=== PATIENT | female | born 1990 | race Caucasian/White ===

== ENCOUNTER 2017-06-24 08:44 | Inpatient (IN) ==
--- OUTSIDE RECORDS SUMMARY | 2017-06-24 08:48 | External Medical Summary | Continuity of Care Document ---
:1990 Author Organization [facility] Address [address] [place], [place] [id number] Phone Care Team Providers Name Role Phone Mela Rosenberg MD Unavailable Unavailable Allergies, Adverse Reactions, Alerts Substance Reaction Severity Status No Known Drug Allergies Unknown Active Medications Medication Instructions Dosage Effective Dates Status Comments (start - stop) labetalol 100 mg take 1 tablet by - Active tablet oral route 1-2 times every day Fioricet 50 mg-300 take 1 - 2 capsule Not Available - Active mg-40 mg capsule by oral route every 6 hours as needed not to exceed 6 capsules per 24hrs FOLIC ACID 65 mg daily - Active (unknown strength) iron ER 325 mg (65 - Active mg iron) capsule,extended release 28 mg-800 - Active mcg tablet Problems Condition Effective Dates (start - stop) Clinical Status Encntr for suprvsn of normal first - preg, third trimester 29 weeks gestation of - Pap Smear Screening, Cervix Encounter for oth general cnsl and advice on procreation 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) (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) w/o abn findings Encntr screen for infections w sexl - mode of transmiss Encounter for screening for oth - infec/parastc diseases Encntr for suprvsn of normal first - preg, first trimester Encounter for screening of - mother 9 weeks gestation of - Oth related conditions, - second trimester 22 weeks gestation of - Matern care for oth or susp poor fetl - grth, 1st tri, unsp 13 weeks gestation of - Matern care for oth or susp poor fetl - grth, 2nd tri, unsp 18 weeks gestation of - Matern care for oth or susp poor fetl - grth, third tri, unsp Low lying placenta NOS or w/out - hemorrhage, third trimester 32 weeks gestation of - Low lying placenta NOS or w/out - hemorrhage, second trimester 18 weeks gestation of - Encntr for suprvsn of normal first - preg, second trimester 26 weeks gestation of - Low lying placenta NOS or w/out - hemorrhage, third trimester 30 weeks gestation of - Encntr for suprvsn of normal first - preg, third trimester 32 weeks gestation of - 28 weeks gestation of - Encntr for suprvsn of normal first - preg, third trimester OCP Surveillance - Active Migraines Active Procedures Procedure Date OB Visit No Charge - [employer] Results Test Name Date and Time Measure Units Reference Range Abnormal Flag Comments Unknown Advance Directives Directive Yes / No Effective Date File Name Unknown Encounters Encounter Practice Location Reason(s) Diagnoses Date Provider Care Team Description For Visit Members Associates Vlad Encsamantha for Carcamo Referring In Womens suprvsn of normal 6-201 Marzena. Provider: Health [facility], first preg, third 7 700 Marzena Carcamo PO [address] [email or web address] weeks Medical K, 700 1522, gestation of [facility], , [facility] [place], 120, [place] 120, [id number], Vlad [place], [place], tel:[phone] [id number] , [place]. tel: tel: [phone] Stefanie Chu Matern care for Sep-0 Carcamo Referring In Womens Ultrasound oth or susp poor 6-201 Marzena. Provider: Fany MURPHY, fetl grth, third 7 700 Marzena Carcamo PO Box tri, unspLow Medical , 700 1522, lying placenta [facility], NOS or w/out , [facility] Dr MOHAMUD, hemorrhage, third 120, [place] 120, [id number], [id number] weeks Vlad Chu, gestation of [place], tel: [phone]. , [place]. tel: tel: [phone] Stefanie Chu Low lying Aug-2 Carcamo Referring In Womens placenta NOS or 4-201 Marzena. Provider: Fany MURPHY, w/out hemorrhage, 7 700 Marzena Carcamo PO Box third [email or web address] [facility], 700 1522, weeks gestation Center [facility], of , [facility] Dr MOHAMUD, 120, [place] 120, , Vlad Chu, [place], tel: [phone]. , [place]. tel: tel: [phone] Stefanie Chu Encntr for Aug-2 Carcamo Referring In Womens suprvsn of normal 1-201 Marzena. Provider: Fany MURPHY, first preg, third 7 700 Marzena Carcamo PO Box [id number] weeks [facility], 700 1522, gestation of [facility], , [facility] Dr MOHAMUD, 120, [place] 120, , Vlad Chu, [place], tel: [phone]. , [place]. tel: tel: [phone] Stefanie Chu 28 weeks Aug-1 Carcamo Referring In Womens gestation of 0-201 Marzena. Provider: Fany MURPHY pregnancyEncntr 7 700 Marzena Carcamo PO Box for suprvsn of Medical , 700 1522, normal first [facility], preg, third , [facility] Dr MOHAMUD, trimester 120, [place] 120, , Vlad Chu, [place], [place], tel:[phone]. , [place]. tel: tel: [phone] Stefanie Chu Encntr for Saroj-2 Carcamo Referring In Womens suprvsn of normal 7-201 Marzena. Provider: Fany MURPHY, first preg, 7 700 Marzena Carcamo PO Box second Medical , 700 1522, [email or web address] [facility], [facility] , [facility] Dr MOHAMUD, 120, [place] 120, , Vlad [place], [place], [place], tel:[phone]. , [place]. tel: tel: [phone] Stefanie Chu Oth Zaki-2 Carcamo Referring In Womens related 9-201 Marzena. Provider: Fany MURPHY, conditions, 7 700 Marzena Carcamo PO Box [facility] , 700 1522, [id number] weeks [facility], [facility] of , [facility] Dr MOHAMUD, 120, [place] 120, , Vlad [place], [place], [place], tel:[phone]. , [place]. tel: tel: [phone] Stefanie Chu Zaki-2 Carcamo In Womens 3-201 Marzena. Fany MURPHY, 7 700 PO [address] Medical [address], [place], [place], 120, , [place], [place], tel: [phone] , [place]. tel: [phone] Stefanie Chu Low lying Zaki-0 Carcamo Referring In Womens placenta NOS or 1-201 Marzena. Provider: Fany MURPHY, w/out hemorrhage, 7 700 Marzena Carcamo PO Box [facility] , 700 1522, [facility], [facility] of , [facility] Dr MOHAMUD, 120, [place] 120, , Vlad [place], [place], [place], tel:[phone]. , [place]. tel: tel: [phone] Stefanie Chu Matern care for Zaki-0 Carcamo Referring In Womens Ultrasound oth or susp poor - Marzena. Provider: Fany MURPHY, [facility], 2nd 7 700 Marzena Carcamo PO Box tri, [email or web address] weeks Medical , 700 1522, gestation of [facility], , [facility] Dr MOHAMUD, 120, [place] 120, [id number], Vlad [place], [place], [place], tel: [phone]. , [place]. tel: tel: [phone] Stefanie Chu Matern care for Apr-2 Carcamo Referring In Womens oth or susp poor 5- Marzena. Provider: Fany MURPHY [facility], 1st 7 700 Marzena Carcamo PO Box tri, [email or web address] weeks Medical , 700 1522, gestation of [facility], , [facility] Dr MOHAMUD, 120, [place] 120, [id number], Vlad [place], [place], tel:[phone]. , [place]. tel: tel: [phone] Stefanie Chu Encntlarissa screen for Mar-2 Carcamo Referring In Womens infections w sexl Marzena. Provider: Fany MURPHY, mode of 7 700 Marzena Carcamo PO Box transmissEncounte Medical , 700 1522, r for screening [facility], for oth , [facility] Dr MOHAMUD, infec/parastc 120, [place] 120, , diseasesEncntr Vlad Chu, for suprvsn of [place]OH[place]UD, tel: normal first [phone]. preg, first , [place]. tel: trimesterEncounte tel: [phone] r for [phone] screening of mother9 weeks gestation of Stefanie Chu Pap Smear Carcamo Referring In Womens Screening, Marzena. Provider: Fany MURPHY, CervixEncounter 6 700 Marzena Carcamo PO Box for ot general Medical , 700 1522, cnsl and advice [facility], on , [facility] Dr MOHAMUD, procreationEncntr 120, [place] 120, [id number], for pool finisher exam Vlad [place], (general) [place], [place], tel: (routine) w/o abn [phone]. [facility] , . tel: tel: [phone] Associates Vlad December- Carcamo In Womens 1-201 Marzena. [facility], 5 700 PO [facility] [address], [place] [address] Adri[place], [place], 120, [id number], [facility], tel: [phone] , . tel: [phone] Family History Family Member Diagnosis Age At Onset No family history of Ovarian Cancer Maternal Grandmother oral cancer Father Cardiovascular Disease No family history of Venous Thrombosis No family history of Epilepsy No family history of Osteoporosis No family history of Kidney Disease No family history of Stroke No family history of Colon Cancer Father Hypertension Mother Hypertension Mother Diabetes mellitus No family history of Breast Cancer No family history of Pulmonary Embolism No family history of Lung Disease No family history of Thyroid Disorder No family history of Uterine Cancer Immunizations Vaccine Date Status Comments Tdap completed Source: New Immunization Record Influenza, seasonal, injectable, completed Note: Invalid documented admin preservative free, 3 yrs or date was NULL/NULL/2014. ; older Source: Source Unspecified Tdap completed Note: Invalid documented admin date was NULL/NULL/2013. ; Source: Source Unspecified MMR completed Note: Invalid documented admin date was NULL/NULL/1997. ; Source: Source Unspecified Payers Payer name Insurance type Covered constitution party ID Authorization(s) [facility] [id number] [facility] [id number] Social History Type Description Quantity Date Captured Alcohol Use Details No Caffeine Use Details Unknown Tobacco Use Status Unknown Smoking Status Never smoker Vital Signs Date / Height Weight BMI Pulse Blood Temperature Respiratory Body Head BMI Time: Rate Pressure Rate Surface Circumference percentile Area 152.90 24.6 126/84 -2017 lbs 8 mm[Hg] 11:35 kg/m AM eter (2) Chief Complaint And Reason For Visit Unknown Chief Complaint And Reason For Visit Reason For Referral Reason For Referral Unknown Plan Of Care Date Type Action Status Appointment Edie Guzman BOOKED Future Order: Lab Order Pap Smear With HPV Reflex If ASCUS Ordered ([id number]) Future Order: Radiology Order Complete OB Ultrasound > 14 Ordered Weeks ([id number]) Future Order: Radiology Order Ultrasound OB Follow-up ([id number]) Ordered Date Type Problem Goal Intervention Status Start Date Unknown. History Of Present Illness Encounter Date Complaint History Of Present Illness This patient has no known history of present illness Functional Status Encounter Date Functional Assessment Cognitive Assessment Unknown Medications Administered Medication Instructions Dosage Effective Dates (start - stop) Status Comments Drug Treatment Unknown Instructions Date Instruction Additional Information gestational glucose lab screening genetic testing HIV and other routine tests risk factors identified by history anticipated course of care nutrition and weight gain counseling, special diet toxoplasmosis precautions (cats / raw meat) exercise indications for ultrasound influenza vaccine environmental / work hazards travel tobacco (ask, advise, assess, assist and arrange) alcohol illicit / recreational drugs use of any medications (including supplements, vitamins, herbs, OTC drugs) smoking counseling domestic violence seat belt use new ob handbook Zika virus assessment & precautions dentist, wt gain 25-35#
--- OUTSIDE RECORDS SUMMARY | 2017-06-24 08:48 | External Medical Summary | Continuity of Care Document ---
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) w/o abn findings Pap Smear Screening, Cervix Encounter for oth general cnsl and advice on procreation Encntr screen for infections w sexl - [...] second trimester 18 weeks gestation of - Low lying placenta NOS or w/out - hemorrhage, third trimester 30 weeks gestation of - Encntr for suprvsn of normal first - preg, second trimester 26 weeks gestation of - Encntr for suprvsn of normal first - preg, third trimester 32 weeks gestation of - Encntr for suprvsn of normal first - preg, third trimester 29 weeks gestation of - Encntr for suprvsn of normal first - preg, third trimester 36 weeks gestation of - Encounter For Screening For - Streptococcus B Encntr for suprvsn of normal first - preg, third trimester 28 weeks gestation of - OCP Surveillance - Active Migraines Active Procedures Procedure Date OB Visit No Charge Results Test Name Date and Time Measure Units Reference Range Abnormal Flag Comments Unknown Advance Directives Directive Yes / No Effective Date File Name Unknown Encounters Encounter Practice Location Reason(s) Diagnoses Date Provider Care Team Description For Visit Members Stefanie Chu Encntr for Carcamo Referring In Womens suprvsn of normal 4-201 Marzena. Provider: Fany PA, first preg, third 7 700 Marzena Carcamo PO Box [email or web address] weeks Medical , 700 1522, gestation of [facility], pregnancyEncounte , [facility] [address] MOHAMUD, r For 120, [place] 120, , Screening For Vlad Chu, Streptococcus B [place], tel:[phone]. , [place]. tel: tel: [phone] Stefanie Chu Encntr for Sep-2 Carcamo Referring In Womens suprvsn of normal 0-201 Marzena. Provider: Health PA, first preg, third 7 700 Marzena Carcamo PO Box [id number] weeks Medical , 700 1522, gestation of [facility], , [facility] Dr MOHAMUD, 120, [place] 120, , Vlad [place], [place], tel:+ [phone]. , [place]. tel: tel: [phone] Stefanie Chu Encntr for Sep-0 Carcamo Referring In Womens suprvsn of normal 6-201 Marzena. Provider: Health PA, first preg, third 7 700 Marzena Carcamo PO Box [email or web address] weeks Medical , 700 1522, gestation of [facility], Dr, [facility] Dr MOHAMUD, 120, [place] 120, , Vlad [place], [place], tel:[phone]. , [place]. tel: tel: [phone] Stefanie Chu Matern care for Sep-0 Carcamo Referring In Womens Ultrasound oth or susp poor 6-201 Marzena. Provider: Health PA, fetl grth, third 7 700 Marzena Carcamo PO Box tri, unspLow Medical K, 700 1522, lying placenta [facility], NOS or w/out , [facility] Dr MOHAMUD, hemorrhage, third 120, [place] 120, , [email or web address] weeks Vlad Chu, [place] gestation of [place]UD, tel:[phone]. , [place]. tel: tel: [phone] Stefanie Chu Low lying Aug-2 Carcamo Referring In Womens placenta NOS or 4-201 Marzena. Provider: Fany MURPHY, w/out hemorrhage, 7 700 Marzena Carcamo PO Box third Medical , 700 1522, weeks gestation [facility], of , [facility] Dr MOHAMUD, 120, [place] 120, [id number], Vlad Chu, [place], [place], tel: [phone]. , [place]. tel: tel: [phone] Stefanie Chu Encntr for Aug-2 Carcamo Referring In Womens suprvsn of normal 1-201 Marzena. Provider: Fany MURPHY, first preg, third 7 700 Marzena Carcamo PO Box [id number] weeks [facility], 700 1522, gestation of [facility], , [facility] [address] MOHAMUD, 120, [place] 120, [id number], Vlad Chu, [place], [place], tel:[phone]. , [place]. tel: tel: [phone] Stefanie Chu Encntr for Aug-1 Carcamo Referring In Womens suprvsn of normal 0-201 Marzena. Provider: Fany MURPHY, first preg, third 7 700 Marzena Carcamo PO Box [id number] weeks [facility], 700 1522, gestation of [facility], , [facility] Dr MOHAMUD, 120, [place] 120, [id number], Vlad Chu, [place], [place], tel: [phone]. , [place]. tel: tel: [phone] Stefanie Chu Encntr for Saroj-2 Carcamo Referring In Womens suprvsn of normal 7-201 Marzena. Provider: Fany MURPHY, first preg, 7 700 Marzena Carcamo PO Box second Medical K, 700 1522, [email or web address] weeks [facility], gestation of , [facility] Dr MOHAMUD, 120, [place] 120, [id number], Vlad Chu, [place], [place], tel: [phone]. , [place]. tel: tel: [phone] Associates Vlad Oth Zaki-2 Carcamo Referring In Womens related 9-201 Marzena. Provider: Fany MURPHY, conditions, 7 700 Marzena Carcamo PO Box second Medical K, 700 1522, [email or web address] weeks [facility], gestation of Dr, [facility] Dr MOHAMUD, 120, [place] 120, [id number], Vlad Chu, [place], [place], tel: [phone]. , [place]. tel: tel: [phone] Stefanie Chu Zaki-2 Carcamo In Womens 3-201 Marzena. Fany MURPHY, 7 700 PO Box Medical [address], [place], , [facility] [place], 120, [id number], [place], [place], tel: [phone] , [place]. tel: [phone] Stefanie Chu Low lying Zaki-0 Carcamo Referring In Womens placenta NOS or 1-201 Marzena. Provider: Fany MURPHY, w/out hemorrhage, 7 700 Marzena Carcamo PO Box [facility] Medical K, 700 1522, [email or web address] weeks [facility], gestation of Dr, [facility] Dr MOHAMUD, 120, [place] 120, [id number], Vlad Chu, [place], [place], tel: [phone]. , [place]. tel: tel: [phone] Stefanie Chu Matern care for Zaki-0 Carcamo Referring In Womens Ultrasound oth or susp poor -201 Marzena. Provider: dotty Gayle, 2nd 7 700 Marzena Carcamo PO Box tri, [email or web address] weeks Medical K, 700 1522, gestation of [facility] Adriana, , [facility] Dr MOHAMUD, 120, [place] 120, , Vlad [place], [place], [place], tel: [phone]. , [place]. tel: tel: [phone] Stefanie Chu Matern care for Apr-2 Carcamo Referring In Womens oth or susp poor 5-201 Marzena. Provider: Health PA, fetl grth, 1st 7 700 Marzena Carcamo PO Box tri, [email or web address] weeks [facility], 700 1522, gestation of [facility], Dr, [facility] Dr MOHAMUD, 120, [place] 120, , Vlad Chu, [place]UD, tel: [phone]. , [place]. tel: tel: [phone] Stefanie Coffey screen for Mar-2 Carcamo Referring In Womens infections w sexl 8- Marzena. Provider: Fany MURPHY, mode of 7 700 Marzena Carcamo PO Box transmissEncounte [facility], 700 1522, r for screening [facility], for oth , [facility] Dr MOHAMUD, infec/parastc 120, [place] 120, , diseasesEncntr Vlad Chu, for suprvsn of [place], tel: normal first [phone]. preg, first , [place]. 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 Provider: Fany MURPHY, (routine) w/o abn 6 700 Marzena Carcamo PO Box findingsPap Smear [facility], 700 1522, Screening, [facility], CervixEncmatteoer , [facility] Dr MOHAMUD, for oth general 120, [place] 120, , cnsl and advice Vlad Chu, on procreation [place]UD, tel: [phone]. , [place]. tel: tel: [phone] Stefanie Chu May-0 Carcamo In Womens - Marzena. Fany MURPHY, 5 700 PO [address] Medical [address], [place], , [place], 120, [id number], Vlad, [place], tel: [phone] , [place]. tel: [phone] Family History Family Member Diagnosis Age At [...] Uterine Cancer Immunizations Vaccine Date Status Comments Influenza, injectable, completed Source: New Immunization Record quadrivalent, preservative free, 3 yrs or older Tdap completed Source: New Immunization Record Influenza, seasonal, injectable, completed Note: Invalid documented admin preservative free, 3 yrs or date was NULL/NULL/2014. ; older Source: Source Unspecified Tdap completed Note: Invalid documented admin date was NULL/NULL/2013. ; Source: Source Unspecified MMR completed Note: Invalid documented admin date was NULL/NULL/1997. ; Source: Source Unspecified Payers Payer name Insurance type Covered democrat ID Authorization(s) [facility] [id number] [facility] [id number] [facility] [id number] Social History Type Description Quantity Date Captured Alcohol Use Details No Caffeine Use Details coffee 20 0z per day Tobacco Use Status Never smoked tobacco Smoking Status Never smoker Vital Signs Date / Height Weight BMI Pulse Blood Temperature Respiratory Body Head BMI Time: Rate Pressure Rate Surface Circumference percentile Area 159.00 25.6 lbs 6 mm[Hg] 2:02 kg/m PM eter (2) Chief Complaint And Reason For Visit Unknown Chief Complaint And Reason For Visit Reason For Referral Reason For Referral Unknown Plan Of Care Date Type Action Status Appointment Edie Guzman BOOKED Future Order: Lab Order Pap Smear With HPV Reflex If ASCUS Ordered ([id number]) Future Order: Radiology Order Complete OB Ultrasound > 14 Ordered Weeks ([id number]) Future Order: Radiology Order Ultrasound OB Follow-up ([id number]) Ordered Date Type Problem Goal Intervention Status Start Date Unknown. History Of Present Illness Encounter Date Complaint History Of Present Illness This patient has no known history of present illness Functional Status Encounter Date Functional Assessment Cognitive Assessment Unknown Medications Administered Medication Instructions Dosage Effective Dates (start - stop) Status Comments Drug Treatment Unknown Instructions Date Instruction Additional Information labor signs group B strep screening gestational glucose lab screening genetic testing HIV [...]
--- OUTSIDE RECORDS SUMMARY | 2017-06-24 08:48 | External Medical Summary | Continuity of Care Document ---
:1990 Author Organization [facility] Address [address] [place], [place] [id number] Phone Care Team Providers Name Role Phone [...] release 28 mg-800 - Active mcg tablet Culturelle - Active Probiotics 10 billion cell-200 mg sprinkle capsule Problems Condition Effective Dates (start - stop) Clinical Status Encntr for suprvsn of normal first - preg, second trimester 26 weeks gestation of - Encntr for obstetrician gynecologist exam (general) (routine) w/o abn findings Pap [...] tri, unsp 18 weeks gestation of - Low lying [...] MURPHY, first preg, third 7 700 Marzena Cacramo [address] [id number] weeks Medical , 700 1522, gestation of [facility], Dr [facility] Dr MOHAMUD, 120, [place] 120, , [place] Chu, [facility], [place], tel: [phone]. , [place]. tel: tel: [phone] Stefanie Chu Encntr for Carcamo Referring In Womens suprvsn of normal 7-201 Marzena. Provider: Fany MURPHY, first preg, 7 700 Marzena Carcamo PO Box second Medical K, 700 1522, [email or web address] weeks [facility], gestation of Dr [facility] Dr MOHAMUD, 120, [place] 120, [id number], [place], [place], tel: [phone]. , [place]. tel: tel: [phone] Associates [place] Oth Zaki-2 Carcamo Referring In Womens related 9-201 Marzena. Provider: Fany MURPHY, conditions, 7 700 Marzena Carcamo PO Box second Medical K, 700 1522, [email or web address] [facility] Dr, [facility] Dr MOHAMUD, 120, [place] 120, [id number], [place], [place], tel: [phone]. , [place]. tel: tel: [phone] Stefanie Chu Zaki-2 Carcamo In Womens 3-201 Marzena. Fany MURPHY, 7 700 [address], [place], , [facility] [place], 120, [id number], [place], [place], tel: [phone] , [place]. tel: [phone] Stefanie Chu Low lying Zaki-0 Carcamo Referring In Womens placenta NOS or 1-201 Marzena. Provider: Fany MURPHY, w/out hemorrhage, 7 700 Marzena Carcamo PO Box [facility] Medical , 700 1522, [id number] weeks [facility], gestation of Dr, [facility] Dr MOHAMUD, 120, [place] 120, [id number], [place], [place], tel: [phone]. , [place]. tel: tel: [phone] Stefanie Chu Matern care for Zaki-0 Carcamo Referring In Womens Ultrasound oth or susp poor -201 Marzena. Provider: Health KATHERINE, fetl gr, 2nd 7 700 Marzena Carcamo PO Box tri, [id number] weeks Medical , 700 1522, gestation of [facility] Adriana, , [facility] Dr MOHAMUD, 120, [place] 120, , [place], [place], tel: [phone]. , [place]. tel: tel: [phone] Stefanie Chu Matern care for Apr-2 Carcamo Referring In Womens oth or susp poor 5-201 Marzena. Provider: Health KATHERINE, fetl gr, 1st 7 700 Marzena Carcamo PO Box tri, unsp13 weeks [facility], 700 1522, gestation of [facility], , [facility] Dr MOHAMUD, 120, [place] 120, , [place], [place], [place], tel: [phone]. , [place]. tel: tel: [phone] Stefanie Coffey screen for Mar-2 Carcamo Referring In Womens infections w sexl 8- Marzena. Provider: Health KATHERINE, mode of 7 700 Marzena Carcamo PO Box transmissEncounte [facility], 700 1522, r for screening [facility], for oth , [facility] Dr MOHAMUD, infec/parastc 120, [place] 120, , diseasesEncntr [place], for suprvsn of [place], [place], tel: normal first [phone]. preg, first , [place]. tel: trimesterEncounte tel: [phone] r for [phone] screening of mother9 weeks gestation of Associates [place] Coffey for obstetrician gynecologist Apr- Carcamo Referring In Womens exam (general) - Marzena. Provider: Fany MURPHY, (routine) w/o abn 6 700 Marzena Carcamo PO Box findingsPap Smear [facility], 700 1522, Screening, [facility], CervixEncounter , [facility] Dr MOHAMUD, for oth general 120, [place] 120, [id number], cnsl and advice [place], on procreation [place], tel: [phone]. , [place]. tel: tel: [phone] Stefanie Chu May-0 Carcamo In Womens 1-201 Marzena. Health KATHERINE, 5 700 [address], [place] Dr Adriana, [place], 120, [id number], [place], [place], tel:[phone] , [place]. tel: [phone] Family History Family Member Diagnosis Age At [...] Cancer Immunizations Vaccine Date Status Comments Influenza, seasonal, injectable, completed Note: Invalid documented admin preservative free, 3 yrs or date was NULL/NULL/2014. ; older Source: Source Unspecified Tdap completed Note: Invalid documented admin date was NULL/NULL/2013. ; Source: Source Unspecified MMR completed Note: Invalid documented admin date was NULL/NULL/1997. ; Source: Source Unspecified Payers Payer name Insurance type Covered libertarian ID Authorization(s) [employer] [place] BL [id number] Social History Type Description Quantity Date Captured Alcohol Use Details No Caffeine Use Details coffee 20 0z per day Tobacco Use Status Never smoked tobacco Smoking Status Never smoker Vital Signs Date / Height Weight BMI Pulse Blood Temperature Respiratory Body Head BMI Time: Rate Pressure Rate Surface Circumference percentile Area 151.10 . lbs 9 9:09 kg/m AM eter (2) Chief Complaint And Reason For Visit Unknown Chief Complaint And Reason For Visit Reason For Referral Reason For Referral Unknown Plan Of Care Date Type Action Status Appointment Edie Guzman BOOKED Future Order: Lab Order Pap Smear With HPV Reflex If ASCUS Ordered ([id number]) Future Order: Radiology Order Complete OB Ultrasound > 14 Ordered Weeks ([id number]) Date Type Problem Goal Intervention Status Start [...]
--- OUTSIDE RECORDS SUMMARY | 2017-06-24 08:48 | External Medical Summary | Continuity of Care Document ---
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 Provider: Health PA, first preg, third 7 700 Marezna Carcamo PO Box [email or web address] weeks Medical K, 700 1522, gestation of [facility] [place], Dr, [place], 120, [place] 120, , [place], [place]OHAMUD, tel: [phone]. , [place]. tel: tel: [phone] Stefanie Chu Matern care for Sep-0 Carcamo Referring In Womens Ultrasound oth or susp poor 6-201 Marzena. Provider: Fany MURPHY, fetl grth, third 7 700 Marzena Carcamo PO Box tri, unspLow [facility], 700 1522, lying placenta [facility], NOS or w/out , [facility] Dr MOHAMUD, hemorrhage, third 120, [place] 120, [id number], [id number] weeks [place], gestation of [place], [place], tel: [phone]. , [place]. tel: tel: [phone] Stefanie Chu Low lying Aug-2 Carcamo Referring In Womens placenta NOS or 4-201 Marzena. Provider: Fany MURPHY, w/out hemorrhage, 7 700 Marzena Carcamo PO Box third [email or web address] Medical , 700 1522, weeks gestation [facility], of , [facility] Dr MOHAMUD, 120, [place] 120, , [place], [place]UD, tel: [phone]. , [place]. tel: tel: [phone] Stefanie Chu 29 weeks Aug-2 Carcamo Referring In Womens gestation of 1-201 Marzena. Provider: Fany MURPHY pregnancyEncntr 7 700 Marzena Carcamo PO Box for suprvsn [facility], 700 1522, [facility], third , [facility] Dr MOHAMUD, trimester 120, [place] 120, , [place], [place]UD, tel: [phone]. , [place]. tel: tel: [phone] Stefanie Chu 28 weeks Aug-1 Carcamo Referring In Womens gestation of 0-201 Marzena. Provider: Fany MURPHY pregnancyEncntr 7 700 Marzena Carcamo PO Box for suprvsn of [facility], 700 1522, [facility], third , [facility] Dr MOHAMUD, trimester 120, [place] 120, , [place], [place], [place], tel:[phone]. , [place]. tel: tel: [phone] Associates [place] Encntr for Saroj-2 Carcamo Referring In Womens suprvsn of normal 7-201 Marzena. Provider: Fany MURPHY, first preg, 7 700 Marzena Carcamo PO Box [facility], 700 1522, [email or web address] weeks [facility], [facility] of , [facility] Dr MOHAMUD, 120, [place] 120, , [place], [place], [place], tel:[phone]. , [place]. tel: tel: [phone] Stefanie Chu Oth Zaki-2 Carcamo Referring In Womens related 9-201 Marzena. Provider: Fany MURPHY, conditions, 7 700 Marzena Carcamo PO Box [facility], 700 1522, [email or web address] weeks [facility], [facility] of , [facility] Dr MOHAMUD, 120, [place] 120, , [place], [place], [place], tel:[phone]. , [place]. tel: tel: [phone] Stefanie Chu Zaki-2 Carcamo In Womens 3-201 Marzena. Fany MURPHY, 7 700 PO [facility] [address], [place] Dr Adriana, [facility] [place], 120, , [place], [place], tel: [phone] , [place]. tel: [phone] Stefanie Chu Low lying Zaki-0 Carcamo Referring In Womens placenta NOS or 1-201 Marzena. Provider: Fany MURPHY, w/out hemorrhage, 7 700 Marzena Carcamo PO Box [facility], 700 1522, [id number] weeks [facility] [place], gestation of , [facility] Dr MOHAMUD, 120, [place] 120, [id number], [place], [place], [place], tel:[phone]. , [place]. tel: tel: [phone] Stefanie Chu Matern care for Zaki-0 Carcamo Referring In Womens Ultrasound oth or susp poor - Marzena. Provider: [facility], [facility], [facility] 700 Marzena Carcamo PO Box tri, [id number] weeks Medical , 700 1522, gestation of [facility], , [facility] Dr MOHAMUD, 120, [place] 120, [id number], [place], [place], [place], tel: [phone]. , [place]. tel: tel: [phone] Stefanie Chu Matern care for Apr-2 Carcamo Referring In Womens oth or susp poor 5- Marzena. Provider: Fany MURPHY, fetl [facility], 09 07 700 Marzena Carcamo PO Box tri, unsp13 weeks [facility], 700 1522, gestation of [facility], , [facility] Dr MOHAMUD, 120, [place] 120, [id number], [place], [place], tel: [phone]. , [place]. tel: tel: [phone] Stefanie Chu Encntlarissa screen for Mar-2 Carcamo Referring In Womens infections w sexl - Marzena. Provider: Fany MURPHY, mode of 7 700 Marzena Carcamo PO Box transmissEncounte [facility], 700 1522, r for screening [facility], for ot , [facility] Dr MOHAMUD, infec/parastc 120, [place] 120, , diseasesEncntr [place], for suprvsn of [place], tel: normal first [phone]. [id number] preg, first , [place]. tel: trimesterEncounte tel: [phone] r for [phone] screening of mother9 weeks gestation of Stefanie Chu Pap Smear Carcamo Referring In Womens Screening, Marzena. Provider: Fany MURPHY, CervixEncounter 6 700 Marzena Carcamo PO Box for oth general Medical K, 700 1522, cnsl and advice [facility] [address], [facility] Dr MOHAMUD, procreationEncntr 120, [place] 120, [id number], for manipulator operator exam [place], (general) [place], tel: (routine) w/o abn [phone]. findings , [place]. tel: tel: [phone] Associates [place] December- Carcamo In Womens 1-201 Marzena. [facility], 5 700 PO [address] Medical [address], Center Dr Adriana, [place], 120, [id number], [place], [place], tel: [phone] , [place]. tel: [phone] Family History Family Member Diagnosis Age At [...] Insurance type Covered constitution party ID Authorization(s) [facility] [id number] [facility] [id number] Social History Type Description Quantity Date Captured Alcohol Use Details No Caffeine Use Details coffee 20 0z per day Tobacco Use Status Never smoked tobacco Smoking Status Never smoker Vital Signs Date / Height Weight BMI Pulse Blood Temperature Respiratory Body Head BMI Time: Rate Pressure Rate Surface Circumference percentile Area 156.00 25.1 127/2017 lbs 8 mm[Hg] 9:23 kg/m AM eter (2) Chief Complaint And Reason For Visit Unknown Chief Complaint And Reason For Visit Reason For Referral Reason For Referral Unknown Plan Of Care Date Type Action Status Appointment Edie Guzman BOOKED Future Order: Lab Order Pap Smear With HPV Reflex If ASCUS Ordered ([id number]) Future Order: Radiology Order Complete OB Ultrasound > 14 Ordered Weeks ([id number]) Future Order: Radiology Order Ultrasound OB Follow-up ([id number]) Ordered Date Type Problem Goal Intervention Status [...]
--- OUTSIDE RECORDS SUMMARY | 2017-06-24 08:49 | External Medical Summary | Continuity of Care Document ---
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) w/o abn findings Encounter for screening of - mother 9 weeks gestation of - Encntr screen for infections w sexl - mode of transmiss Encounter for screening for oth - infec/parastc diseases Encntr for suprvsn of normal first - preg, first trimester Oth related conditions, - second trimester 22 [...] third trimester 28 weeks gestation of - Encntr for suprvsn of normal first - preg, third trimester 29 weeks gestation of - Encntr for suprvsn of normal first - preg, third trimester 32 weeks gestation of - Encntr for suprvsn of normal first - preg, third trimester 34 weeks gestation of - OCP Surveillance - Active Migraines Active Procedures Procedure Date Ultrasnd preg uterus, flwup/repeat Results Test Name Date and Time Measure Units Reference Range Abnormal Flag Comments Unknown Advance Directives Directive Yes / No Effective Date File Name Unknown Encounters Encounter Practice Location Reason(s) Diagnoses Date Provider Care Team Description For Visit Members Stefanie Chu Encntr for Carlos Alberto Referring In Womens suprvsn of normal 0-201 Marzena. Provider: Health PA, first preg, third 7 700 Marzena Carcamo PO Box weeks Medical K, 700 1522, gestation of [facility] [place], Dr, [place] [address] [place], 120, [place] 120, [id number], [place], [place]OHAMUD, tel: [phone]. , [place]. tel: tel: [phone] Stefanie Chu Encntr for Sep-0 Carcamo Referring In Womens suprvsn of normal 6-201 Marzena. Provider: Fany MURPHY, first preg, third 7 700 Marzena Carcamo PO Box [email or web address] weeks [facility], 700 1522, gestation of [facility], , [facility] Dr MOHAMUD, 120, [place] 120, , [place], [place], tel: [phone]. , [place]. tel: tel: [phone] Stefanie Chu Matern care for Sep-0 Carcamo Referring In Womens Ultrasound oth or susp poor 6-201 Marzena. Provider: Fany MURPHY, fetl grth, third 7 700 Marzena Carcamo PO Box tri, unspLow [facility], 700 1522, lying placenta [facility], NOS or w/out , [facility] Dr MOHAMUD, hemorrhage, third 120, [place] 120, , [id number] weeks Vlad [place], gestation of [place]OHAMUD, tel: [phone]. , [place]. tel: tel: [phone] Stefanie Chu Low lying Aug-2 Carcamo Referring In Womens placenta NOS or 4-201 Marzena. Provider: Fany MURPHY, w/out hemorrhage, 7 700 Marzena Carcamo PO Box third [email or web address] Medical , 700 1522, weeks gestation [facility], of , [facility] Dr MOHAMUD, 120, [place] 120, , [place], [place]OHAMUD, tel: [phone]. , [place]. tel: tel: [phone] Stefanie Chu Encntr for Aug-2 Carcamo Referring In Womens suprvsn of normal 1-201 Marzena. Provider: Fany MURPHY, first preg, third 7 700 Marzena Carcamo PO Box [email or web address] weeks [facility], 700 1522, gestation of [facility], , [facility] Dr MOHAMUD, 120, [place] 120, [id number], [place], [place], [place], tel:[phone]. , [place]. tel: tel: [phone] Stefanie Hugginsntr for Aug-1 Carcamo Referring In Womens suprvsn of normal 0-201 Marzena. Provider: Health KATHERINE, first preg, third 7 700 Marzena Carcamo PO Box [email or web address] weeks Medical , 700 1522, gestation of [facility], , [facility] Dr MOHAMUD, 120, [place] 120, , [place], [place], [place], tel:[phone]. , [place]. tel: tel: [phone] Stefanie Coffey for Saroj-2 Carcamo Referring In Womens suprvsn of normal 7-201 Marzena. Provider: Fany MURPHY, first preg, 7 700 Marzena Carcamo PO Box second Medical , 700 1522, [email or web address] weeks [facility], gestation of Dr, [facility] Dr MOHAMUD, 120, [place] 120, , [place], [place], [place], tel: [phone]. , [place]. tel: tel: [phone] Stefanie Chu [facility] Zaki-2 Carcamo Referring In Womens related 9-201 Marzena. Provider: Fany MURPHY, conditions, 7 700 Marzena Carcamo PO Box second Medical K, 700 1522, [email or web address] weeks [facility], [facility] of , [facility] Dr MOHAMUD, 120, [place] 120, [id number], [place], [place], [place], tel:[phone]. , [place]. tel: tel: [phone] Stefanie Chu Zaki-2 Carcamo In Womens 3-201 Marzena. Fany MURPHY, 7 700 [address] Medical [address], [place], Dr [place], 120, , [place], [place], tel: [phone] , [place]. tel: [phone] Stefanie Chu Low lying Zaki-0 Carcamo Referring In Womens placenta NOS or 1-201 Marzena. Provider: Fany MURPHY, w/out hemorrhage, 7 700 Marzena Carcamo PO Box second Medical K, 700 1522, [email or web address] weeks [facility], gestation of , [facility] Dr MOHAMUD, 120, [place] 120, , [place], [place], tel:[phone]. , [place]. tel: tel: [phone] Stefanie Chu Matern care for Zaki-0 Carcamo Referring In Womens Ultrasound oth or susp poor 1-201 Marzena. Provider: Fany MURPHY, fetl grth, 2nd 7 700 Marzena Carcamo PO Box tri, [email or web address] weeks [facility], 700 1522, gestation of [facility], Dr, [facility] Dr MOHAMUD, 120, [place] 120, , [place], [place], tel:[phone]. , [place]. tel: tel: [phone] Stefanie Chu Matern care for Apr-2 Carcamo Referring In Womens oth or susp poor 5-201 Marzena. Provider: Fany MURPHY, fetl grth, 1st 7 700 Marzena Carcamo PO Box tri, [email or web address] weeks [facility], 700 1522, gestation of [facility] [place], , [facility] Dr MOHAMUD, 120, [place] 120, [id number], [place], [place], tel: [phone]. , [place]. tel: tel: [phone] Stefanie Chu Encounter for Mar-2 Carcamo Referring In Womens 8-201 Marzena. Provider: Fany MURPHY, screening of 7 700 Marzena Carcamo PO Box mother9 weeks Medical , 700 1522, gestation of [facility], pregnancyEncntr , [facility] Dr MOHAMUD, screen for 120, [place] 120, [id number], infections w sexl [place], mode of [place], tel: transmissEncounte [phone]. r for screening , [place]. tel: for oth tel: [phone] infec/parastc [phone] diseasesEncntr for suprvsn of normal first preg, first trimester Associates [facility] Pap Smear Carcamo Referring In Womens Screening, Marzena. 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 findings , [place]. tel: tel: [phone] Stefanie Chu Carcamo In Womens Marzena. Health KATHERINE, 5 700 [address] Medical [address], Center Dr Adriana, [place], 120, , [place], [place], tel: [phone] , [place]. tel: [phone] Family History Family Member Diagnosis Age At [...] Unspecified Payers Payer name Insurance type Covered republican ID Authorization(s) [facility] [id number] [facility] [id number] Social History Type Description Quantity Date Captured Unknown Vital Signs Date / Height Weight BMI Pulse Blood Temperature Respiratory Body Head BMI Time: Rate Pressure Rate Surface Circumference percentile Area Unknown Chief Complaint And Reason For Visit Unknown Chief Complaint And Reason For Visit Reason For Referral Reason For Referral Unknown Plan Of Care Date Type Action Status Appointment Edie Guzman BOOKED Future Order: Radiology Order Ultrasound OB Follow-up ([id number]) Ordered Future Order: Lab Order Pap Smear With HPV Reflex If ASCUS Ordered (WPMPap1) Future Order: Radiology Order Complete OB Ultrasound > 14 Ordered Weeks ([id number]) Date Type Problem Goal Intervention Status Start [...]
--- OUTSIDE RECORDS SUMMARY | 2017-06-24 08:49 | External Medical Summary | Continuity of Care Document ---
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) (routine) w/o abn findings Pap Smear Screening, Cervix Encounter for oth general cnsl and advice on procreation Encounter for screening of - mother 9 [...] third trimester 29 weeks gestation of - OCP Surveillance - Active Migraines Active Procedures Procedure Date OB Visit No Charge Hemoglobin count, colorimetric Hematocrit blood count Glucose test Venpnctr fngr/heel/ear stick routne Results Test Name Date and Time Measure Units Reference Range Abnormal Flag Comments Panel Description: Glucose [Mass/volume] in Serum or Plasma --1 hour post 50 g glucose PO GLUCOSE, 129 mg/dL <140 N Test performed at [employer] GESTATIONAL SCREEN 09:20:00 Risk [id number] (50G)-140 [place] [address]Ckgxhnas: ANÍBAL SEAMAN DO,MPH Panel Description: HEMOGLOBIN + HEMATOCRIT HEMOGLOBIN 09:20:00 10.7 g/dL 11.7-15.5 L HEMATOCRIT 09:20:00 34.4 % 35.0-45.0 L Test performed at [email or web address] [id number] [place] [address]Brddetue: ANÍBAL SEAMAN DO,MPH Advance Directives Directive Yes / No Effective Date File Name Unknown Encounters Encounter Practice Location Reason(s) Diagnoses Date Provider Care Team Description For Visit Members Stefanie Chu Low lying Aug-2 Carcamo Referring In Womens placenta NOS or 4-201 Marzena. Provider: Fany MURPHY, w/out hemorrhage, 7 700 Marzena Carcamo PO Box third [email or web address] Medical K, 700 1522, weeks gestation [facility], of , [facility] [address] MOHAMUD, 120, [place] 120, [id number], [place], [place], [place], tel: [phone]. , [place]. tel: tel: [phone] Stefanie Chu Encntr for Aug-2 Carcamo Referring In Womens suprvsn of normal 1-201 Marzena. Provider: Fany MURPHY, first preg, third 7 700 Marzena Carcamo PO Box [id number] weeks [facility], 700 1522, gestation of [facility], , [facility] Dr MOHAMUD, 120, [place] 120, , [place], [place] MOHAMUD, tel: [phone]. , [place]. tel: tel: [phone] Stefanie Hugginsntr for Aug-1 Carcamo Referring In Womens suprvsn of normal 0-201 Marzena. Provider: Fany MURPHY, first preg, third 7 700 Marzena Carcamo PO Box [id number] weeks [facility], 700 1522, gestation of [facility], , [facility] Dr MOHAMUD, 120, [place] 120, [id number], [place], [place] MOHAMUD, tel: [phone]. , [place]. tel: tel: [phone] Stefanie Chu Encntr for Mar-2 Carcamo Referring In Womens suprvsn of normal 7-201 Marzena. Provider: Fany MURPHY, first preg, 7 700 Marzena Carcamo PO Box second Medical K, 700 1522, [id number] weeks [facility], gestation of , [facility] Dr MOHAMUD, 120, [place] 120, [id number], [place], [place] MOHAMUD, tel: [phone]. , [place]. tel: tel: [phone] Stefanie Chu Oth Zaki-2 Carcamo Referring In Womens related - Marzena. Provider: Health KATHERINE, conditions, 7 700 Marzena Carcamo PO Box second Medical K, 700 1522, [id number] [facility] of , [facility] Dr MOHAMUD, 120, [place] 120, , [place], [place], [place], tel: [phone]. , [place]. tel: tel: [phone] Stefanie Chu Zaki-2 Carcamo In Womens 3-201 Marzena. Fany MURPHY, 7 700 PO Box Medical [address]22, [place], , [facility] [place], 120, , [place], [place], tel:[phone] , [place]. tel: [phone] Stefanie Chu Low lying Zaki-0 Carcamo Referring In Womens placenta NOS or Marzena. Provider: Fany MURPHY, w/out hemorrhage, 7 700 Marzena Carcamo PO Box [facility] Medical K, 700 1522, weeks [facility] [place], gestation of Dr, [facility] Dr MOHAMUD, 120, [place] 120, [id number], Vlad Chu, [place], [place], tel: [phone]. , [place]. tel: tel: [phone] Stefanie Chu Matern care for Zaki-0 Carcamo Referring In Womens Ultrasound oth or susp poor - Marzena. Provider: Health KATHERINE, fetl grfreddy, 2nd 7 700 Marzena Carcamo PO Box tri, [email or web address] weeks Medical K, 700 1522, gestation of [facility] [place], , [facility] Dr MOHAMUD, 120, [place] 120, [id number], [place], [place], tel: [phone]. , [place]. tel: tel: [phone] Stefanie Chu Matern care for Apr-2 Carcamo Referring In Womens oth or susp poor - Marzena. Provider: Health KATHERINE, fetl grth, 1st 7 700 Marzena Carcamo PO Box tri, [email or web address] weeks Medical , 700 1522, gestation of [facility] [place], Dr, [facility] Dr MOHAMUD, 120, [place] 120, , [place], [place], [place], tel: [phone]. , [place]. tel: tel: [phone] Stefanie Chu Encounter for Oct- Carcamo Referring In Womens - Marzena. Provider: Health KATHERINE, screening of 7 700 Marzena Carcamo PO Box mother9 weeks Medical , 700 1522, [facility], pregnancy[facility]tr , [facility] Dr MOHAMUD, screen for 120, [place] 120, [id number], infections w sexl [place], mode of [place], [place], tel: transmissEncounte [phone]. r for screening , [place]. 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 Provider: Health KATHERINE, (routine) w/o abn 6 700 Marzena Carcamo PO Box findingsPap Smear [facility], 700 1522, Screening, [facility], CervixEncounter , [facility] Dr MOHAMUD, for oth general 120, [place] 120, [id number], cnsl and advice Vlad [place], on procreation [place]OHAMUD, tel: [phone]. , [place]. tel: tel: [phone] Stefanie Chu May-0 Carcamo In Womens - Marzena. Health KATHERINE, 5 700 PO [address] Medical [address], [place] [address] Adriana, [place], 120, [id number], [place], tel:[phone] , [place]. tel: [phone] Family History Family Member Diagnosis Age At [...] Unspecified Payers Payer name Insurance type Covered alliance party ID Authorization(s) [facility] [id number] [facility] [id number] Social History Type Description Quantity Date Captured Alcohol Use Details No Caffeine Use Details coffee 20 0z per day Tobacco Use Status Never smoked tobacco Smoking Status Never smoker Vital Signs Date / Height Weight BMI Pulse Blood Temperature Respiratory Body Head BMI Time: Rate Pressure Rate Surface Circumference percentile Area 154.40 24.9 -2017 lbs 2 8:37 kg/m AM eter (2) 154.40 24.9 111/74 -2017 lbs 2 mm[Hg] 8:57 kg/m AM eter (2) Chief Complaint And Reason For Visit Unknown Chief Complaint And Reason For Visit Reason For Referral Reason For Referral Unknown Plan Of Care Date Type Action Status Appointment Edie Guzman BOOKED Appointment Edie Guzman BOOKED Future Order: Lab Order Pap Smear With HPV Reflex If ASCUS Ordered (WPMPap1) Future Order: Radiology Order Complete OB Ultrasound > 14 Ordered Weeks ([id number]) Date Type Problem Goal Intervention Status Start [...]
--- OUTSIDE RECORDS SUMMARY | 2017-06-24 08:49 | External Medical Summary | Continuity of Care Document ---
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 Provider: Health [place], first preg, third 7 700 Marzena Carcamo PO Box [email or web address] weeks Medical K, 700 1522, gestation of [facility], Dr, [place], 120, [place] 120, , [place], [place] MOHAMUD, tel: [phone]. , [place]. tel: tel: [phone] Stefanie Chu Encntr for Sep-0 Carcamo Referring In Womens suprvsn of normal 6-201 Marzena. Provider: Fany MURPHY, first preg, third 7 700 Marzena Carcamo PO Box weeks Medical , 700 1522, gestation of [facility], , [facility] Dr MOHAMUD, 120, [place] 120, , [place], [place] MOHAMUD, tel: [phone]. , [place]. tel: tel: [phone] Stefanie Chu Matern care for Sep-0 Carcamo Referring In Womens Ultrasound oth or susp poor 6-201 Marzena. Provider: Fany MURPHY, fetl grth, third 7 700 Marzena Carcamo PO Box tri, unspLow [facility], 700 1522, lying placenta [facility], NOS or w/out , [facility] Dr MOHAMUD, hemorrhage, third 120, [place] 120, , [id number] weeks [place], gestation of [place]OHAMUD, tel: [phone]. , [place]. tel: tel: [phone] Stefanie Chu Low lying Aug-2 Carcamo Referring In Womens placenta NOS or 4-201 Marzena. Provider: Fany MURPHY, w/out hemorrhage, 7 700 Marzena Carcamo PO Box third [id number] Medical , 700 1522, weeks gestation [facility], of , [facility] Dr MOHAMUD, 120, [place] 120, , [place], [place] MOHAMUD, tel: [phone]. , [place]. tel: tel: [phone] Stefanie Chu Encntr for Aug-2 Carcamo Referring In Womens suprvsn of normal 1-201 Marzena. Provider: Fany MURPHY, first preg, third 7 700 Marzena Carcamo PO Box [id number] weeks [facility], 700 1522, gestation of [facility], , [facility] Dr MOHAMUD, 120, [place] 120, [id number], Vlad [place], [place], [place], tel:[phone]. , [place]. tel: tel: [phone] Stefanie Hugginsntr for Aug-1 Carcamo Referring In Womens suprvsn of normal 0-201 Marzena. Provider: Fany MURPHY, first preg, third 7 700 Marzena Carcamo PO Box [id number] weeks Medical , 700 1522, gestation of [facility], , [facility] Dr MOHAMUD, 120, [place] 120, [id number], [place], [place], [place], tel:[phone]. , [place]. tel: tel: [phone] Stefanie Monteror for Saroj-2 Carcamo Referring In Womens suprvsn of normal 7-201 Marzena. Provider: Fany MURPHY, first preg, 7 700 Marzena Carcamo PO Box second Medical , 700 1522, [email or web address] weeks [facility], gestation of Dr, [facility] Dr MOHAMUD, 120, [place] 120, , [place], [place], [place], tel: [phone]. , [place]. tel: tel: [phone] Stefanie Chu Ot Zaki-2 Carcamo Referring In Womens related 9-201 Marzena. Provider: Fany MURPHY, conditions, 7 700 Marzena Carcamo PO Box second Medical K, 700 1522, [id number] weeks [facility], gestation of Dr, [facility] Dr MOHAMUD, 120, [place] 120, [id number], [place], [place], [place], tel:[phone]. , [place]. tel: tel: [phone] Stefanie Chu Zaki-2 Carcamo In Womens 3-201 Marzena. Fany MURPHY, 7 700 PO Box Medical [address]22, [place], , [place] MOHAMUD, 120, [id number], [place], [place], tel: [phone] , [place]. tel: [phone] Associates [facility] Low lying Zaki-0 Carcamo Referring In Womens placenta NOS or 1-201 Marzena. Provider: Fany MURPHY, w/out hemorrhage, 7 700 Marzena Carcamo PO Box second Medical K, 700 1522, [email or web address] weeks [facility], gestation of , [facility] Dr MOHAMUD, 120, [place] 120, , [place], [place], [place], tel:[phone]. , [place]. tel: tel: [phone] [facility] Matern care for Zaki-0 Carcamo Referring In Womens Ultrasound oth or susp poor 1-201 Marzena. Provider: Fany MURPHY, fetl gr, 2nd 7 700 Marzena Carcamo PO Box tri, [email or web address] weeks [facility], 700 1522, gestation of [facility], , [facility] Dr MOHAMUD, 120, [place] 120, , [place], [place], [place], tel: [phone]. , [place]. tel: tel: [phone] Stefanie Chu Matern care for Apr-2 Carcamo Referring In Womens oth or susp poor 5-201 Marzena. Provider: Fany MURPHY, fetl gr, 1st 7 700 Marzena Carcamo PO Box tri, [email or web address] weeks Medical , 700 1522, gestation of [facility], , [facility] Dr MOHAMUD, 120, [place] 120, [id number], [place], [place], [place], tel: [phone]. , [place]. tel: tel: [phone] Stefanie Chu Encounter for Mar-2 Carcamo Referring In Womens 8-201 Marzena. Provider: Fany MURPHY, screening of 7 700 Marzena Carcamo PO Box mother9 weeks Medical , 700 1522, gestation of [facility], pregnancyEncntr , [facility] Dr MOHAMUD, screen for 120, [place] 120, [id number], infections w sexl Vlad [place], mode of [place], [place], tel: transmissEncounte [phone]. r for screening , [place]. tel: for oth tel: [phone] infec/parastc [phone] diseasesEncntr for suprvsn of normal first preg, first trimester Stefanie Chu Pap Smear Carcamo Referring In Womens Screening, Marzena. Provider: Fany MURPHY, CervixEncounter 6 700 Marzena Carcamo PO Box for oth general Medical K, 700 1522, cnsl and advice [facility] [address], [place] [address] Dr MOHAUMD, procreationEncntr 120, [place] 120, , for grill chef exam Vlad Chu, (general) [place], [place], tel: (routine) w/o abn [phone]. findings , [place]. tel: tel: [phone] Stefanie Chu Carcamo In Womens Marzena. Fany MURPHY, 5 700 PO Box Medical [address], Center Dr Adriana, [place], 120, , [facility] [place], tel: [phone] , [place]. tel: [phone] Family History Family Member Diagnosis Age At [...] Insurance type Covered constitution party ID Authorization(s) [facility] [id number] [facility] [id number] Social History Type Description Quantity Date Captured Alcohol Use Details No Caffeine Use Details Unknown Tobacco Use Status Unknown Smoking Status Never smoker Vital Signs Date / Height Weight BMI Pulse Blood Temperature Respiratory Body Head BMI Time: Rate Pressure Rate Surface Circumference percentile Area 154.90 25.0 121/83 lbs 0 mm[Hg] 10:15 kg/m AM eter (2) Chief Complaint And Reason For Visit Unknown Chief Complaint And Reason For Visit Reason For Referral Reason For Referral Unknown Plan Of Care Date Type Action Status Appointment Edie Guzman BOOKED Future Order: Lab Order Pap Smear With HPV Reflex If ASCUS Ordered (WPMPap1) Future Order: Radiology Order Complete OB Ultrasound > 14 Ordered Weeks ([id number]) Future Order: Radiology Order Ultrasound OB Follow-up ([id number]) Ordered Date Type Problem Goal Intervention Status [...]
--- OUTSIDE RECORDS SUMMARY | 2017-06-24 08:49 | External Medical Summary | Continuity of Care Document ---
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 , [place]. tel: tel: [phone] Stefanie Chu Encntlarissa for Aug-2 Carcamo Referring In Womens suprvsn of normal 1-201 Marzena. Provider: Health KATHERINE, first preg, third 7 700 Marzena Carcamo PO Box [id number] weeks Medical K, 700 1522, gestation of [facility], Dr [facility] Dr MOHAMUD, 120, [place] 120, , [place], [place], [place], tel:[phone]. , [place]. tel: tel: [phone] Stefanie Chu Aug-1 Carcamo In Womens 4-201 Marzena. Health KATHERINE, 7 700 PO Box Medical 1522, [place], , [place], 120, [id number], [place], [place], tel:[phone] , [place]. tel: [phone] Stefanie Chu Encntr for Aug-1 Carcamo Referring In Womens suprvsn of normal 0-201 Marzena. Provider: Health KATHERINE, first preg, third 7 700 Marzena Carcamo PO Box [email or web address] weeks Medical , 700 1522, [facility] Dr, [facility] Dr MOHAMUD, 120, [place] 120, , [place], [place], [place], tel:[phone]. , [place]. tel: tel: [phone] Stefanie Chu Encntr for Saroj-2 Carcamo Referring In Womens suprvsn of normal 7-201 Marzena. Provider: Fany MURPHY, first preg, 7 700 Marzena Carcamo PO Box second Medical K, 700 1522, [id number] weeks [facility] [place], gestation of Dr, [facility] Dr MOHAMUD, 120, [place] 120, , [place], [place], [place], tel:[phone]. , [place]. tel: tel: [phone] Stefanie Chu Oth Zaki-2 Carcamo Referring In Womens related 9-201 Marzena. Provider: Health KATHERINE, conditions, 7 700 Marzena Carcamo PO Box second Medical K, 700 1522, [id number] [facility], [facility] of , [facility] Dr MOHAMUD, 120, [place] 120, , [place], [place], [place], tel:[phone]. , [place]. tel: tel: [phone] Stefanie Chu Zaki-2 Carcamo In Womens 3-201 Marzena. Fany MURPHY, 7 700 PO Box Medical [address], [place], , [facility] [place], 120, [id number], [place], [place], tel: [phone] , [place]. tel: [phone] Stefanie Chu Low lying Zaki-0 Carcamo Referring In Womens placenta NOS or 1-201 Marzena. Provider: Fany MURPHY, w/out hemorrhage, 7 700 Marzena Carcamo PO Box second Medical K, 700 1522, [id number] weeks [facility] of Dr, [facility] Dr MOHAMUD, 120, [place] 120, [id number], [place], [place], [place], tel:[phone]. , [place]. tel: tel: [phone] Stefanie Chu Matern care for Zaki-0 Carcamo Referring In Womens Ultrasound oth or susp poor 1-201 Marzena. Provider: dotty Gayle, 2nd 7 700 Marzena Carcamo PO Box tri, [id number] weeks Medical K, 700 1522, gestation of [facility] [place], , [facility] Dr MOHAMUD, 120, [place] 120, [id number], [place], [place], [place], tel: [phone]. , [place]. tel: tel: [phone] Stefanie Chu Matern care for Apr-2 Carcamo Referring In Womens oth or susp poor 5-201 Marzena. Provider: dotty Gayle, 1st 7 700 Marzena Carcamo PO Box tri, [id number] weeks Medical K, 700 1522, gestation of [facility] [place], , [facility] Dr MOHAMUD, 120, [place] 120, [id number], Vlad Chu, [place], [place], tel:[phone]. , [place]. tel: tel: [phone] Stefanie Chu Encntr screen for Mar-2 Carcamo Referring In Womens infections w sexl 8-201 Marzena. Provider: Fany MURPHY, mode of 7 700 Marzena Carcamo PO Box transmissEncounte Medical K, 700 1522, r for screening [facility], for oth , [facility] Dr MOHAMUD, infec/parastc 120, [place] 120, [id number], diseasesEncntr Vlad Chu, for suprvsn of [place], [place], tel: normal first [phone]. preg, [facility] , [place]. tel: trimesterEncounte tel: [phone] r for [phone] screening of mother9 weeks gestation of [facility] Pap Smear Carcamo Referring In Womens Screening, Marzena. 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 findings , [place]. tel: tel: [phone] Stefanie Chu December- Carcamo In Womens - Marzena. Fany MURPHY, 5 700 PO Box Medical 15[address], [place] Dr Adriana, [place]OHAMUD, 120, [id number], [place], [place], tel:[phone] , [place]. tel: [phone] Family History Family Member Diagnosis Age At [...] name Insurance type Covered democrat ID Authorization(s) [facility] [id number] [facility] [id number] Social History Type Description Quantity Date Captured [...] Complete OB Ultrasound > 14 Ordered Weeks ([id number]) Date Type Problem Goal Intervention Status Start [...]
[2017-06-24] MEDS ORDERED: ACETAMINOPHEN 500 MG TABLET PO PRN ×2 (09:27→11:51)
[2017-06-24] MEDS ORDERED: DiphenhydrAMINE 25 MG CAPSULE PO PRN (09:27)
[2017-06-24] MEDS ORDERED: METHYLERGONOVINE 0.2 MG/ML INJECTION IM PRN (11:51)
[2017-06-24] MEDS ORDERED: MAG-AL + SIM ORAL LIQUID 30ml PO PRN (11:51)
[2017-06-24] MEDS ORDERED: CALCIUM CARBONATE Chewable 500mg TABLET PO PRN (11:51)
[2017-06-24] MEDS ORDERED: LIDOCAINE 1% (10mg/ml) 2mL INJ PF SDV ID PRN (11:51)
[2017-06-24] MEDS ORDERED: CARBOPROST 250 MCG/ML INJECTION IM PRN (11:51)
[2017-06-24] MEDS: LR 1,000 ML IV PRN ×2 (12:07→18:07)
[2017-06-24 12:16] VITALS: BMI 28.5
[2017-06-25] MEDS ORDERED: ONDANSETRON 4 MG/2 ML INJECTION IVP PRN (05:58)
[2017-06-25] MEDS ORDERED: DiphenhydrAMINE 50 MG/ML INJECTION IVP PRN (05:58)
[2017-06-25] MEDS ORDERED: ROPIVACAINE 1% 10MG/ML INJ 200 MG, SUFentanil 50 MCG in NS 100 ML EPI PRN (05:58)
[2017-06-25] MEDS ORDERED: NALOXONE 0.4 MG/ML INJECTION IVP PRN (05:58)
--- NOTE | 2017-06-25 06:02 | Anesthesia Preoperative Report ---
Anesthesia Epidural/Spinal Rec - Date and Time Date: 06/25/17 Procedure: Labor Epidural Plan: Epidural - Vital Signs Vital Signs: Temperature 97.0 F 06/24/17 12:16 Pulse Rate 92 06/24/17 12:16 Respiratory Rate 16 06/24/17 12:16 Blood Pressure 166/98 H 06/24/17 12:16 /Para: P:0 - Medictaions & Allergies Inpatient Medications: Current Medications Acetaminophen (Tylenol) 1,000 mg PO Q6HR PRN PRN Reason: Pain Acetaminophen (Tylenol) 500 - 1,000 mg PO Q4H PRN PRN Reason: Pain Al Hydroxide/Mg Hydroxide (Maalox Plus) 30 ml PO Q3H PRN PRN Reason: Indigestion Calcium Carbonate (Tums) 500 - 1,000 mg PO Q2H PRN PRN Reason: Indigestion Carboprost Tromethamine (Hemabate) 250 mcg IM O PRN PRN Reason: .Downtime Diphenhydramine HCl (Benadryl) 25 - 50 mg PO Q4H PRN PRN Reason: Itching Diphenhydramine HCl (Benadryl) 25 - 50 mg IVP Q3H PRN PRN Reason: Itching Lactated Ringer's (Lactated Ringers) 1,000 mls @ 999 mls/hr IV .Q1H1M PRN Last Admin: 06/24/17 18:07 Dose: 999 mls/hr Ropivacaine 200 mg/ Sufentanil Citrate 50 mcg/ Sodium Chloride 121 mls @ 8 mls/ hr EPI PRN PRN PRN Reason: Protocol Lidocaine HCl (Xylocaine-Mpf 1% Vial) 0.2 mg ID O PRN PRN Reason: IV Start Methylergonovine Maleate (Methergine) 0.2 mg IM O PRN Misoprostol (Cytotec) 800 mcg IA ONCE PRN Naloxone HCl (Narcan) 0.1 mg IVP Q2M PRN PRN Reason: Respiratory distress Ondansetron HCl (Zofran) 4 mg IVP Q6H PRN PRN Reason: Nausea &/or vomiting Allergies/Adverse Reactions: Allergies Allergy/AdvReac Type Severity Reaction Status Date / Time No Known Allergies Allergy Unverified 06/24/17 12:09 - Home Medications Home Medications: Home Medications Medication Instructions Recorded Confirmed Type Ferrous Sulfate (Iron Supplement) 325 mg PO DAILY #30 tab 03/09/16 06/24/17 History Folic Acid 0.8 mg PO DAILY #0 07/02/16 06/24/17 History VITAMIN PO DAILY #0 07/02/16 History Fioricet 06/11/17 History Labetalol 100 mg PO DAILY 06/11/17 History - Medical History Other History: Reports: Now - Surgical History Anesthesia Reactions: None Hx Family Anesthesia Reaction: No History of Motion Sickness: No - Social History Smoking Status: Never smoker Second Hand Exposure: No Substance Use Type: does not use Alcohol Intake Frequency: does not drink - Pertinent Findings Lab Data: CBC and BMP 06/24/17 12:03 EKG Rhythm: Normal Sinus Rhythm - Physical Exam Respiratory Exam: lungs clear Cardiovascular Exam: regular rate and rhythm - Airway Assessment Mallampati Score: II TMD: 2 Fingerbreadths Neck Extension: good Overall Assessment: may be difficult intubation - ASA ASA Score: 2 - Discussion Discussion: Discussed risks/options/alternatives of anesthesia and questions answered. Patient consents. Nursing pain assessment noted. Anesthesia Discussion: spouse Attestation Statement: Prior to the delivery of any anesthetic medication, I examined the patient, developed the plan, obtained the patient's consent and discussed the risk and benefits of the procedure with the patient/guardian.
[2017-06-25] MEDS: AMPICILLIN 2 GM in NS 100 ML IV SCH ×3 (10:29→22:19)
[2017-06-25] MEDS ORDERED: GENTAMICIN 120 MG in NS 100 ML IV ONE (10:30)
[2017-06-25] MEDS: LR 1,000 ML IV PRN (10:34)
[2017-06-25] MEDS ORDERED: GENTAMICIN - PHARMACY CONSULT MC ONE (10:48)
--- NOTE | 2017-06-25 11:22 | Pharmacy Consult-Antibiotics ---
Pharmacy Consult-Gentamicin - Laboratory Information Gentamicin WBC 9.9 T/MM3 (4.5-11.0) 06/24/17 12:03 - Consult Information Order noted by Dr Carcamo to begin gentamicin for Ms Guzman, who is 26 years old and has good renal function. Will start at gentamicin 120mg IV q8h and draw levels at 48 hours if gentamicin is to continue. Thank you.
[2017-06-25] MEDS: HYDROCODONE/APAP 5mg/325mg TABLET PO PRN ×2 (11:30→17:30)
[2017-06-25] MEDS: GENTAMICIN PB 120 MG/100 ML BAG IV SCH ×2 (11:40→20:03)
[2017-06-25] MEDS ORDERED: DiphenhydrAMINE 25 MG CAPSULE PO PRN (11:51)
[2017-06-25] MEDS ORDERED: OXYTOCIN DRIP 30 UNIT/500 ML ML IV SCH (11:51)
[2017-06-25] MEDS ORDERED: HYDROCORTISONE 2.5% CREAM 30gm RECTALLY PRN (11:51)
--- NOTE | 2017-06-25 13:16 | Labor and Delivery Note ---
DATE OF DELIVERY 06/25/2017 DELIVERY NOTE Edie is a 26-year-old 1 at 39 weeks 1 day gestational age who presented to [facility] yesterday morning with contractions. She changed her cervix, so she was admitted. She initially desired minimal interventions with being able to walk and intermittent monitoring. Last evening she was agreeable to rupture of membranes, returning clear fluids. She continued to labor overnight and then finally asked for an epidural at 5 o'clock this morning. She was then able to rest and labor down to complete and +2 station. She started pushing. Her temperature went up to 100.9 along with maternal and tachycardia, so she was started on ampicillin and gentamicin. At this point she had pushed an hour. Although she had good pushing effort, she still had a substantial way to go before delivery. I offered her an operative vaginal delivery, but she wanted to try to push a little longer and so I gave her another 30 minutes. At this point she was pretty tired and agreeable to forceps. Risks of the forceps were explained to the patient and her including although not limited to injury including brain injury and increased risk of a maternal tearing. Baby was at the +3/5 station in the JACKIE position. The closed Simpsons were placed and easily articulated. With one contraction the baby's head was brought down to . The forceps were removed. She delivered the head with the next contraction. The baby was vigorous at delivery, so she was placed on mom's abdomen and the cord clamping was delayed for more than 2 minutes. The placenta delivered spontaneously. She had a left vaginal laceration that extended down into a left perineal second-degree laceration. This was repaired with 2-0 Vicryl. She also had a right first-degree perineal laceration that was also repaired. Baby is a viable female , Apgars 8/9, weight 3450 g, name "Sj." At this point mom and baby are stable. [facility]
[2017-06-25] MEDS: IBUPROFEN 800 MG TABLET PO PRN ×2 (13:55→22:33)
--- NOTE | 2017-06-25 14:34 | Anesthesia Postoperative Note ---
- Date and Time Date: 06/25/17 Time: 14:32 - Status Patient Participated in Evaluation: Patient Participated in Person Vital Signs: Temperature 97.0 F 06/24/17 12:16 Pulse Rate 92 06/24/17 12:16 Respiratory Rate 16 06/24/17 12:16 Blood Pressure 166/98 H 06/24/17 12:16 Respiratory Function: Airway Patent, Regular Respirations Cardiovascular Function: Regular Pulse Mental Status: Alert and Oriented Pain Intensity: 0 Hydration: Taking PO Fluids Complications During Recover: None Apparent - Follow-Up Instructions Instructions: Per Surgeon
[2017-06-26 02:48] VITALS: RESP 16
[2017-06-26] MEDS: GENTAMICIN PB 120 MG/100 ML BAG IV SCH ×2 (04:10→12:09)
[2017-06-26] MEDS: AMPICILLIN 2 GM in NS 100 ML IV SCH ×2 (04:46→10:35)
[2017-06-26] MEDS: HYDROCODONE/APAP 5mg/325mg TABLET PO PRN ×2 (04:56→20:25)
--- NOTE | 2017-06-26 08:20 | OB/GYN Progress Note ---
<Linn Robledo - Last Filed: 06/26/17 08:18> OB-PP Progress Note - General PPD1 - Subjective Date: 06/26/17 Lochia: Moderate Pain: controlled Voiding: voiding Nausea or Vomiting Present: No - Objective Vital Signs: Last Vital Signs Temp 97.6 F 06/26/17 02:47 Pulse 85 06/26/17 02:47 Resp 16 06/26/17 02:47 BP 108/66 06/26/17 02:47 Urine Output: good General: alert and oriented Respiratory: non-labored Abdomen: fundus firm Extremities: non-tender Laboratory: Laboratory Results - last 24 hr 06/26/17 04:56 WBC 11.9 H RBC 4.09 Hgb 10.0 L D Hct 31.6 L D MCV 77.3 L MCH 24.4 L MCHC 31.6 RDW Std Deviation 37.3 Plt Count 161 MPV 10.5 - Assessment Assessment: - Plan Plan: routine care <Marzena Carcamo - Last Filed: 06/26/17 08:27> OB-PP Progress Note - Subjective Date: 06/26/17 - Objective Vital Signs: Last Vital Signs Temp 97.6 F 06/26/17 02:47 Pulse 85 06/26/17 02:47 Resp 16 06/26/17 02:47 BP 108/66 06/26/17 02:47 Laboratory: Laboratory Results - last 24 hr 06/26/17 04:56 WBC 11.9 H RBC 4.09 Hgb 10.0 L D Hct 31.6 L D MCV 77.3 L MCH 24.4 L MCHC 31.6 RDW Std Deviation 37.3 Plt Count 161 MPV 10.5 - Assessment Assessment: Anemia, Chorioamnionitis (Continue antibiotics for 24 hours post delivery.) - Plan Plan: iron
[2017-06-26] MEDS: DOCUSATE CALCIUM 240 MG CAPSULE PO SCH (10:36)
[2017-06-26] MEDS: IBUPROFEN 800 MG TABLET PO PRN ×2 (10:36→20:26)
[2017-06-26] MEDS: IRON POLYSACCHARIDE COMPLEX 150 MG CAPSULE PO SCH (10:36)
[2017-06-26 19:29] VITALS: O2SAT 97
[2017-06-27] MEDS: HYDROCODONE/APAP 5mg/325mg TABLET PO PRN ×2 (07:31→13:22)
[2017-06-27] MEDS: IBUPROFEN 800 MG TABLET PO PRN (07:32)
[2017-06-27] MEDS: DOCUSATE CALCIUM 240 MG CAPSULE PO SCH (08:27)
[2017-06-27] MEDS: IRON POLYSACCHARIDE COMPLEX 150 MG CAPSULE PO SCH (08:49)
--- NOTE | 2017-06-27 13:48 | OB/GYN Progress Note ---
OB-PP Progress Note - General PPD2 - Subjective Date: 06/27/17 Lochia: Minimal Pain: controlled Voiding: voiding - Objective Vital Signs: Last Vital Signs Temp 97.8 F 06/27/17 06:00 Pulse 84 06/27/17 06:00 Resp 16 06/27/17 06:00 BP 117/73 06/27/17 06:00 Pulse Ox 97 06/26/17 17:50 Urine Output: good General: alert and oriented - Assessment Assessment: FAVD - Plan Plan: routine care, discharge home, continue PNV
[2017-06-27 15:29] VITALS: BP 132/76; PULSE 103; TEMP 97.7
== END 2017-06-27 15:17 | disposition home or self-care (01) | DRG 774 ==
LOC: OBOBS 08:44 → MC 08:45
PROVIDERS: ADMIT Obstetrics & Gynecology; ATTEND Obstetrics & Gynecology